=== PATIENT | male | born 1930 | race Caucasian/White ===

== ENCOUNTER 2017-02-12 09:01 | Emergency (ER) | payer MEDICARE, OTHER ==
--- NOTE | 2017-02-12 09:28 | EDM.PDOC ---
ED HPI GENERAL MEDICAL PROBLEM - General Chief Complaint: Respiratory Problem Stated Complaint: SOB Time Seen by Provider: 02/12/17 09:15 Source of Information: Reports: Patient, Family, RN History Limitations: Reports: No Limitations - History of Present Illness Onset: Today Onset Date: 02/07/17 Duration: Getting Worse Location: Reports: Chest Associated Symptoms: Reports: Cough, Fever/Chills, Shortness of Breath - Related Data Allergies Allergy/AdvReac Type Severity Reaction Status Date / Time No Known Allergies Allergy Verified 02/12/17 09:02 Home Meds: Home Meds Bicalutamide [Casodex] 50 mg PO DAILY 02/12/17 [History] Finasteride 5 mg PO DAILY 02/12/17 [History] HCTZ/Triamterene [Maxzide 25-37.5 MG] 1 each PO DAILY 02/12/17 [History] ED ROS GENERAL - Review of Systems Review Of Systems: See Below Constitutional: Reports: Fever HEENT: Reports: No Symptoms Respiratory: Reports: Shortness of Breath, Cough Cardiovascular: Reports: No Symptoms GI/Abdominal: Reports: No Symptoms : Reports: Frequency, Urgency Skin: Reports: No Symptoms Neurological: Reports: No Symptoms Psychiatric: Reports: No Symptoms Hematologic/Lymphatic: Reports: No Symptoms ED EXAM, GENERAL - Physical Exam Exam: See Below Exam Limited By: No Limitations General Appearance: Alert, WD/WN, No Apparent Distress Ears: Hearing Grossly Normal Nose: Normal Inspection Throat/Mouth: Normal Voice, No Airway Compromise Head: Atraumatic, Normocephalic Neck: Supple, Non-Tender Respiratory/Chest: No Respiratory Distress, Decreased Breath Sounds (right base) , Crackles (left lower lobe), Rhonchi (clear with cough) Cardiovascular: Regular Rate, Rhythm (Takes diuretic daily), No Edema GI/Abdominal: Normal Bowel Sounds, Soft, Non-Tender Extremities: Other (minimal peripheral edema) Neurological: Alert, Oriented, Normal Cognition Psychiatric: Normal Affect, Normal Mood Skin Exam: Warm, Dry Course - Vital Signs Last Recorded V/S: Last Vital Signs Temp 98.4 F 02/12/17 09:28 Pulse 82 02/12/17 09:28 Resp 20 02/12/17 09:28 BP 140/58 L 02/12/17 09:28 Pulse Ox 98 02/12/17 09:28 - Orders/Labs/Meds Orders: Active Orders 24 hr Category Date Time Status RT Aerosol Therapy [RC] ASDIRECTED Care 02/12/17 09:37 Active Chest 2V [CR] Stat Exams 02/12/17 09:23 Ordered Albuterol/Ipratropium [DuoNeb 3.0-0.5 MG/3 ML] Med 02/12/17 09:45 Active 3 ml NEB Q4H cefTRIAXone [Rocephin] 1 gm Med 02/12/17 09:45 Active Sodium Chloride 0.9% [Normal Saline] 50 ml IV Q24H Medication Orders Albuterol/Ipratropium (Duoneb 3.0-0.5 Mg/3 Ml) 3 ml NEB Q4H SUSY Last Admin: 02/12/17 09:15 Dose: 3 ml Ceftriaxone Sodium 1 gm/ (Sodium Chloride) 50 mls @ 200 mls/hr IV Q24H SUSY Last Admin: 02/12/17 10:33 Dose: 200 mls/hr Labs: Laboratory Tests 02/12/17 02/12/17 02/12/17 Range/Units 09:30 09:30 09:30 WBC 7.2 (4.0-11.0) K/uL RBC 3.82 L (4.50-6.50) M/uL Hgb 12.7 L (13.0-18.0) g/dL Hct 37.0 L (40.0-54.0) % MCV 97 H (76-96) fL MCH 33.2 H (27.0-32.0) pg MCHC 34.3 (31.0-35.0) g/dL RDW 12.3 (11.0-16.0) % Plt Count 151 (150-400) K/uL MPV 10.0 (6.0-10.0) fL Neut % (Auto) 65.9 (45.0-70.0) % Lymph % (Auto) 18.2 L (20.0-40.0) % [place] % (Auto) 15.0 H (3.0-10.0) % Eos % (Auto) 0.6 L (1.0-5.0) % Baso % (Auto) 0.3 (0.0-0.5) % Neut # (Auto) 4.72 (2.00-7.50) K/uL Lymph # (Auto) 1.30 L (1.50-4.00) K/uL [place] # (Auto) 1.07 H (0.20-0.80) K/uL Eos # (Auto) 0.04 (0.04-0.40) K/uL Baso # (Auto) 0.02 (0.02-0.10) K/uL Sodium 130 L (136-145) mmol/L Potassium 4.1 (3.5-5.1) mmol/L Chloride 93 L (98-107) mmol/L Carbon Dioxide 30.6 (21.0-32.0) mmol/L Anion Gap 10.5 (5.0-15.0) mmol/L BUN 9 (8-26) mg/dL Creatinine 0.72 (0.70-1.30) mg/dL Est Cr Clr Drug Dosing 66.46 mL/min Estimated GFR (MDRD) > 60 (>60) MLS/MIN BUN/Creatinine Ratio 12.5 (6-25) Glucose 108 H (74-100) mg/dL Calcium 8.4 L (8.5-10.1) mg/dL Total Bilirubin 0.3 (0.0-1.0) mg/dL AST 35 (15-37) U/L ALT 27 (12-78) U/L Alkaline Phosphatase 52 (46-116) U/L B-Natriuretic Peptide 509 H (0-450) pg/mL Total Protein 6.8 (6.4-8.2) g/dL Albumin 3.3 L (3.4-5.0) g/dL Globulin 3.5 (2.2-4.2) g/dL Albumin/Globulin Ratio 0.9 (0.8-2.0) Meds: Medications Generic Name Dose Route Start Last Admin Trade Name Freq PRN Reason Stop Dose Admin Albuterol/Ipratropium 3 ml 02/12/17 09:45 02/12/17 09:15 Duoneb 3.0-0.5 Mg/3 Ml NEB 3 ml Q4H SUSY Administration Ceftriaxone Sodium 1 gm/ 50 mls @ 200 mls/hr 02/12/17 09:45 02/12/17 10:33 Sodium Chloride IV 200 mls/hr Q24H SUSY Administration Discontinued Medications Generic Name Dose Route Start Last Admin Trade Name Freq PRN Reason Stop Dose Admin Albuterol/Ipratropium Confirm 02/12/17 10:51 Duoneb 3.0-0.5 Mg/3 Ml Administered 02/12/17 10:52 Dose 15 ml .ROUTE .STK-MED ONE Ceftriaxone Sodium Confirm 02/12/17 10:34 Rocephin Administered 02/12/17 10:35 Dose 1 gm .ROUTE .STK-MED ONE - Re-Assessments/Exams Free Text/Narrative Re-Assessment/Exam: 02/12/17 10:52 Reviewed lab results and chest x-ray results with pt and son in law. States hx of prostate concerns and BP concerns. Reviewed symptom care at home. Fluids and food as tolerated. Nebulizer every 4-6 hour scheduled. Rocephin 1 gm IM given X1. Family lives next to pt and can assist with nebulizers. PT does have c-pap at home and will continue to use. Recommend return if symptoms worsen. PCP f/u in 2-3 days, repeat chest x-ray. Departure - Departure Time of Disposition: 10:58 Disposition: Home, Self-Care 01 Condition: Good Clinical Impression: Influenza - Discharge Information Instructions: Influenza, Adult, [id number], How to Use a Nebulizer Referrals: PCP,None [Primary Care Provider] - Forms: ED Department Discharge Additional Instructions: Return to the ER or the clinic if you are starting to feel worse. You can use the nebulizer machine at home every 4 hours. Drink plenty of fluid at home. - My Orders Last 24 Hours: My Active Orders 02/12/17 09:23 Chest 2V [CR] Stat 02/12/17 09:37 RT Aerosol Therapy [RC] ASDIRECTED 02/12/17 09:45 Albuterol/Ipratropium [DuoNeb 3.0-0.5 MG/3 ML] 3 ml NEB Q4H cefTRIAXone [Rocephin] 1 gm Sodium Chloride 0.9% [Normal Saline] 50 ml IV Q24H - Assessment/Plan Last 24 Hours: My Active Orders 02/12/17 09:23 Chest 2V [CR] Stat 02/12/17 09:37 RT Aerosol Therapy [RC] ASDIRECTED 02/12/17 09:45 Albuterol/Ipratropium [DuoNeb 3.0-0.5 MG/3 ML] 3 ml NEB Q4H cefTRIAXone [Rocephin] 1 gm Sodium Chloride 0.9% [Normal Saline] 50 ml IV Q24H
[2017-02-12] MEDS ORDERED: Albuterol/Ipratropium 3.0-0.5 MG/3 ML Neb Soln NEB SCH (09:45)
[2017-02-12] MEDS ORDERED: cefTRIAXone 1 GM in Sodium Chloride 0.9% 50 ML IV SCH (09:45)
[2017-02-12] MEDS ORDERED: Albuterol/Ipratropium 3.0-0.5 MG/3 ML Neb Soln ONE ×2 (10:00→10:51)
[2017-02-12] MEDS ORDERED: cefTRIAXone 1 GM Vial ONE (10:34)
--- NOTE | 2017-02-12 20:31 | CR ---
DATE OF SERVICE: 02/12/2017 CLINICAL DATA: Shortness of breath. PA AND LATERAL CHEST: No priors. The patient has taken a poor inspiration. The heart size is within normal limits. The aorta is very ectatic. There are densities in both lung bases and there is eventration of the right hemidiaphragm consistent with basilar atelectasis and/or infiltrate. Pneumonia should be considered. No pneumothorax. There is minimal pleural thickening in both hemithoraces. There is a shunt tube traversing the right chest. The exam is otherwise negative. [id number] [facility]
== END 2017-02-12 11:18 | disposition home or self-care (01) ==
LOC: LB.ED 09:01
DX: J11.1 Influenza due to unidentified influenza virus with other respiratory manifestations (principal); Z79.899 Other long term (current) drug therapy
CPT/HCPCS: 36415; 71046; 80053; 83880; 85025; 87804; 99283; 99285; J0696; J7050; J7620

== ENCOUNTER 2017-02-14 11:33 | Observation (INO) | payer MEDICARE, OTHER ==
[2017-02-14] MEDS ORDERED: Furosemide 20 MG/2 ML VIAL IVPUSH ONE (12:09)
[2017-02-14] MEDS ORDERED: cloNIDine 0.1 MG Tab PO ONE (12:16)
[2017-02-14] MEDS ORDERED: Furosemide 40 MG/4 ML VIAL ONE (12:16)
[2017-02-14] MEDS ORDERED: cloNIDine 0.1 MG Tab ONE (12:20)
[2017-02-14] MEDS ORDERED: Sodium Chloride 0.9% 10 ML Syringe FLUSH PRN (13:55)
[2017-02-14] MEDS ORDERED: Metoprolol Tartrate 25 MG Tab ONE (17:12)
[2017-02-14] MEDS: Oseltamivir 75 MG Cap PO SCH ×2 (17:15→19:23)
[2017-02-14] MEDS: Metoprolol Tartrate 25 MG Tab PO SCH ×2 (17:15→19:24)
[2017-02-14] MEDS: Lisinopril 5 MG Tab PO SCH (17:15)
[2017-02-14] MEDS: Isosorbide Mononitrate 30 MG Tab.ER PO SCH (17:16)
[2017-02-14] MEDS: Furosemide 40 MG/4 ML VIAL IVPUSH SCH ×2 (17:22→20:52)
[2017-02-14] MEDS ORDERED: Warfarin 5 MG Tab PO SCH (18:00)
[2017-02-14] MEDS: Enoxaparin 100 MG/1 ML Syringe SUBCUT SCH ×2 (18:47→19:23)
--- NOTE | 2017-02-14 21:26 | PCM.HP ---
H&P History of Present Illness - General Date of Service: 02/14/17 Admit Problem/Dx: Admission Diagnosis/Problem Admission Diagnosis/Problem CHF, Congestive heart failure Source of Information: Patient, Family (Daughter) History Limitations: Reports: No Limitations - History of Present Illness Initial Comments - Free Text/Narative: Pt is a 86 year old male who is a patient of [facility] with PMH of HTN and prostate cancer and brain tumor post surgery. Pt is here in the emergency room with complaints of shortness of breath over the past 1 wk now. Patient claims he has been feeling shortness of breath, he claims he feels short of breath if he bends forward. he cannot sleep flat on his back at night, as he feels short of breath. Also he has been noticing swelling of his legs too. Feels tired and exhausted. Pt's SPO2 on room air was in high 70s when he came into the emergency room today. No chest pain or chest tightness. No nausea or vomiting. No palpitations. Pt claims he was seen in the emergency rom on 02/12/17 for the same reason and was diagnosed with Influenza A and he was reassured and discharged on Duonebs for his shortness of breath, but patient claims the duonebs have not helped him much and hence he is here for recheck. His Primary care provider is in [place]. Duration of Symptoms: Reports: Week(s): (1), Getting Worse Severity: Moderate Improves with: Reports: None Worsens with: Reports: None Associated Symptoms: Reports: Shortness of Breath, Weakness. Denies: Confusion , Chest Pain, Cough, Diaphoresis, Fever/Chills, Headaches, Loss of Appetite, Nausea/Vomiting, Rash, Seizure, Syncope - Related Data Allergies/Adverse Reactions: Allergies Allergy/AdvReac Type Severity Reaction Status Date / Time No Known Allergies Allergy Verified 02/12/17 09:02 Home Medications: Home Meds Albuterol/Ipratropium [DuoNeb 3.0-0.5 MG/3 ML] 3 ml .XX Q4HR 14 Days #84 neb 03/01 [Rx] Bicalutamide [Casodex] 50 mg PO DAILY 02/12/17 [History] Finasteride 5 mg PO DAILY 02/12/17 [History] HCTZ/Triamterene [Maxzide 25-37.5 MG] 1 each PO DAILY 02/12/17 [History] Past Medical History HEENT History: Reports: Other (See Below) Other HEENT History: 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 Cardiovascular History: Reports: Heart Failure, Hypertension Respiratory History: Reports: Sleep Apnea, Other (See Below) Other Respiratory History: Uses C-PAP at HS Genitourinary History: Reports: Prostate Disorder Oncologic (Cancer) History: Reports: Prostate - Infectious Disease History Infectious Disease History: Reports: Influenza - Past Surgical History HEENT Surgical History: Reports: Other (See Below) Other HEENT Surgeries/Procedures: see above Cardiovascular Surgical History: Reports: None Respiratory Surgical History: Reports: None Male Surgical History: Reports: None Musculoskeletal Surgical History: Reports: Hip Replacement Oncologic Surgical History: Reports: None Social & Family History - Family History Family Medical History: Noncontributory - Tobacco Use Smoking Status *Q: Former Smoker Years of Tobacco use: 15 Used Tobacco, but Quit: Yes Month Tobacco Last Used: 50 years ago Tobacco Use Comment: quiet smoking 50 years ago Second Hand Smoke Exposure: No - Caffeine Use Caffeine Use: Reports: Coffee Caffeine Use Comment: 1-2 cups a day - Recreational Drug Use Recreational Drug Use: No H&P Review of Systems - Review of Systems: Review Of Systems: See Below General: Reports: Weakness, Fatigue, Weight Gain. Denies: Fever, Chills, Diaphoresis, Decreased Appetite, Weight Loss HEENT: Denies: Rhinitis, Post Nasal Drip, Sinus Congestion, Sore Throat Pulmonary: Reports: Shortness of Breath. Denies: Wheezing, Pleuritic Chest Pain , Cough, Sputum Cardiovascular: Reports: Dyspnea on Exertion, Orthopnea, Edema, Lightheadedness , Blood Pressure Problem. Denies: Chest Pain, Palpitations, Syncope, Claudication Gastrointestinal: Denies: Abdominal Pain, Nausea, Vomiting Genitourinary: Denies: Dysuria, Frequency Musculoskeletal: Denies: Shoulder Pain, Joint Pain, Joint Swelling Skin: Denies: Cyanosis, Pruritis, Rash Psychiatric: Denies: Confusion, Depression Neurological: Reports: No Symptoms Hematologic/Lymphatic: Denies: Anemia, Easy Bleeding, Easy Bruising Exam - Exam Exam: See Below - Vital Signs Vital Signs: Last Vital Signs Temp 99.2 F 02/14/17 17:38 Pulse 65 01/03/18 17:38 Resp 18 02/14/17 17:38 BP 101/51 L 02/14/17 20:52 Pulse Ox 96 02/14/17 17:38 Weight: 97.704 kg - Exam General: Alert, Oriented, 4 HEENT: PERRLA, Hearing Intact, Mucosa Moist & [place], Nares Patent, Normal Nasal Septum, Posterior Pharynx Clear, Conjunctiva Clear, EOMI, EACs Clear, TMs Clear Neck: Supple, Trachea Midline, 2 Lungs: Clear to Auscultation, Normal Respiratory Effort Cardiovascular: Regular Rhythm, Tachycardia GI/Abdominal Exam: Normal Bowel Sounds, Soft, Non-Tender, No Organomegaly, No Distention, No Abnormal Bruit, No Mass, Pelvis Stable Extremities: Normal Inspection, Normal Range of Motion, Non-Tender, Normal Capillary Refill, Pedal Edema (pitting edema 4+ upto knee b/l) Skin: Warm, Intact Neurological: Cranial Nerves Intact, Reflexes Equal Bilateral Neuro Extensive - Mental Status: Alert, Oriented x3, Normal Mood/Affect - Patient Data Result Diagrams: 02/14/17 12:00 02/14/17 12:00 EKG INTERPRETATION EKG Date: 02/14/17 Rate (Beats/Min): 123 [place]: Normal P-Wave: Present QRS: Normal ST-T: Normal QT: Normal EKG Interpretation Comments: Sinus tachycardia *Q Meaningful Use (ADM) - VTE *Q VTE Criteria *Q: - Stroke *Q Stroke Criteria *Q: - AMI *Q AMI Criteria *Q: - Problem List (1) CHF (congestive heart failure), NYHA class III SNOMED Code(s): 337864731 ICD Code: I50.9 - HEART FAILURE, UNSPECIFIED Status: Acute Current Visit : Yes (2) Influenza SNOMED Code(s): 9639215 ICD Code: J11.1 - FLU DUE TO UNIDENTIFIED INFLUENZA VIRUS W OTH RESP MANIFEST Status: Acute Current Visit: No Problem List Initiated/Reviewed/Updated: Yes Orders Last 24hrs: Active Orders 24 hr Category Date Time Status Echo Comp wo Cont [US] Routine Exams 02/28/17 14:08 Ordered INR,PT,PROTHROMBIN TIME [COAG] Routine Lab 02/16/17 07:30 Ordered Bicalutamide [Casodex] Med 02/15/17 08:00 Active 50 mg PO DAILY Enoxaparin [Lovenox] Med 02/14/17 20:00 Active 90 mg SUBCUT Q12HR Finasteride [Proscar] Med 02/15/17 08:00 Active 5 mg PO DAILY Furosemide [Lasix] Med 02/14/17 14:15 Active 20 mg IVPUSH BID HCTZ/Triamterene [Maxzide 25-37.5 MG] Med 02/15/17 08:00 Active 1 each PO DAILY Isosorbide Mononitrate [Imdur] Med 02/14/17 14:15 Active 30 mg PO DAILY Lisinopril [Prinivil] Med 02/14/17 14:15 Active 5 mg PO DAILY Metoprolol Tartrate [Lopressor] Med 02/14/17 20:00 Active 25 mg PO Q12HR Oseltamivir [Tamiflu] Med 02/14/17 14:15 Active 75 mg PO BID Warfarin [Coumadin] Med 02/14/17 18:00 Active 5 mg PO DAILY@1800 Medication Orders Enoxaparin Sodium (Lovenox) 90 mg SUBCUT Q12HR [facility] Last Admin: 02/14/17 19:23 Dose: Admin: 02/14/17 18:47 Dose: 90 mg Finasteride (Proscar) 5 mg PO DAILY [facility] Furosemide (Lasix) 20 mg IVPUSH BID [facility] Last Admin: 02/14/17 20:52 Dose: 20 mg Admin: 02/14/17 17:22 Dose: Isosorbide Mononitrate (Imdur) 30 mg PO DAILY [facility] Last Admin: 02/14/17 17:16 Dose: 30 mg Lisinopril (Prinivil) 5 mg PO DAILY [facility] Last Admin: 02/14/17 17:15 Dose: 5 mg Metoprolol Tartrate (Lopressor) 25 mg PO Q12HR [facility] Last Admin: 02/14/17 19:24 Dose: Admin: 02/14/17 17:15 Dose: 25 mg Non-Formulary Medication (Bicalutamide [Casodex]) 50 mg PO DAILY [facility] Non-Formulary Medication (Hctz/Triamterene [Maxzide 25-37.5 Mg]) 1 each PO DAILY [facility] Oseltamivir Phosphate (Tamiflu) 75 mg PO BID [facility] Last Admin: 02/14/17 19:23 Dose: Admin: 02/14/17 17:15 Dose: 75 mg Sodium Chloride (Saline Flush) 10 ml FLUSH ASDIRECTED PRN PRN Reason: Keep Vein Open Warfarin Sodium (Coumadin) 5 mg PO DAILY@1800 [facility] Last Admin: 02/14/17 18:46 Dose: 5 mg Assessment/Plan Comment:: Asss: Congestive heart failure with underlying Afib, Uncontrolled hypertension. Plan:In the emergency room, pt was started on oxygen. On clinical exam he did have basal b/l crakles with pedal edema.His BP was elevated at 177.102mmhg. His lab work including Cbc, CMP, pt were normal. His troponin was negative. EKG showed sinus tachycardia. His BNP was elevated at 1044. It did appear like uncontrolled hypertension with CHF. He does give history on orthopnea and PND. He did receive 20mg of lasix IV, he started to diuresis significantly and also his shortness of breath improved. At this point, his CHFdiagnosis was confirmed, and as he is a [place], I did call [facility] to discuss patient condition and for inpatient care. I did speak to nurse case management director at [facility], Ms Luis. As there was no available inpatient bed, her recommendation [facility] and she would call us tomorrow when there is bed available and discuss transfer. Hence Patient was admitted to [facility]. He was placed on air sampling and monitoring and started on Treatment for CHF, with MOON inhibitor, Beta kumar, long acting nitro and diuretic. After few hrs of admission, when the heart rate started to come under control. The rhythm abnormality was picked up. He was in atrial fibrillation. Apparently his Afib was initially masked by his tacchycrdia and his CHF Hsi symptoms of SOB started 1 wk ago, so he probably is not a candidate for cardioversion. Hence, I did discuss the issue of anticoagulation with patient and his daughter. They did agree to go ahead with anticoagulation. Pt has been started on Lovenox 90mg S/c BID and also coumadin 5mg has been started today. Will repeat BMP in the morning and also get TSh in Am.
[2017-02-15] MEDS ORDERED: LORazepam 1 MG Tab ONE (06:03)
[2017-02-15] MEDS ORDERED: Non-Formulary Medication 1 Each (Bicalutamide [Casodex] 50 MG) PO SCH (08:00)
[2017-02-15] MEDS ORDERED: HCTZ PO SCH (08:00)
[2017-02-15] MEDS ORDERED: Finasteride 5 MG Tab PO SCH (08:00)
[2017-02-15] MEDS ORDERED: TRIAMTERENE PO SCH (08:00)
[2017-02-15] MEDS: Oseltamivir 75 MG Cap PO SCH (08:23)
[2017-02-15] MEDS: Isosorbide Mononitrate 30 MG Tab.ER PO SCH (08:23)
[2017-02-15] MEDS: Enoxaparin 100 MG/1 ML Syringe SUBCUT SCH (08:24)
[2017-02-15] MEDS: Metoprolol Tartrate 25 MG Tab PO SCH (08:24)
[2017-02-15] MEDS: Furosemide 40 MG/4 ML VIAL IVPUSH SCH (08:25)
[2017-02-15] MEDS: Lisinopril 5 MG Tab PO SCH (08:25)
--- NOTE | 2017-02-15 10:00 | CR ---
DATE OF SERVICE: 02/14/17 CLINICAL DATA: SOB AP PORTABLE CHEST: No priors. The heart is enlarged. The aorta is calcified and ectatic. There is increased density in both lung bases, left greater than right consistent with basilar atelectasis or infiltrate. Pneumonia should be considered. There is mild pleural thickening in both hemithoraces. No pneumothorax. No pleural effusion. There is a catheter traversing the right hemithorax. [id number] MTDD
--- NOTE | 2017-02-15 14:45 | PCM.DCSUM1 ---
Discharge Summary - Hospital Course Free Text/Narrative:: Pt was admitted with Diagnosis of CHF with elevated Blood pressure, he did receive 20mg IV lasix and clonidine 0.1mg orally in the emergency room and he started to diurise well. His SPO2 did improve from high 70s to upper 90s just with IV lasix. Also he was in sinus tachy to start with. he was placed on cardiac monitoring. his initial troponin was negative and also his CMP and CBC were normal. Pt was started on B-kumar, MOON inhibitor and long acting nitro. Also lasix 20mg IV. Once the heart rate started to decrease, the rhythm on the monitor appeared irregularly irregular, at which point patient was reexamined and he did appear to be in Atrial Fibrillation. Patient has been in CHF possible from Afib or vice-versa, not sure which came first. Also Patient was seen 2 days ago for SOB and had Flu test done and his Influenza A was positive. I did repeat it and he still had positive Influenza A. Hence I have empirically covered him with Tamiflu. I did discuss the A-fib with patient and his daughter, stroke prophylaxis and LUIS criteria were discussed. As his symptoms have been going on for 1 wk and progressively worsening, anticoagulation was discussed. Both patient and his daughter agreed to it. Patient was started on coumadin 5mg daily and lovenox 90mg S/c BID until he is therapeutic on coumadin. Today morning patient has been doing well. His BP is well controlled. His heart rate is in 80s controlled A-Fib. His lower extremity edema has significantly improved,and has diursed well.His intake was 500 with out put of 3075cc over night. Pt clincally feels better, no shortness of breath. tolerating diet well. As patient is a , [facility] was again contacted today. [facility] does not have open beds for patient to be transferred As patient is stable and asymptomatic plan was to monitor patient here and have ECHO done next Sunday , if he was not transferred to [facility] and followup. Pt's son who did visit him today afternoon, prefers patient be transferred to a facility with skip loader available to take care of his father. Wants him transferred today. As per the preference of patient's son and patient, I did contact [facility] and discuss patient's health issue with Dr. Domínguez, The hospitalist ventilation equipment tender. She does agree to accept patient. Pt will be transferred to [facility] by [facility] road ambulance.Pt agrees with transfer and he is hemodynamically stable at the time of transfer. Brief History: Kindly see the detialed history and physical - Discharge Data Discharge Date: 02/15/17 Discharge Disposition: Home, Self-Care 01 Condition: Fair - Discharge Diagnosis/Problem(s) (1) CHF (congestive heart failure), NYHA class III SNOMED Code(s): 527516150 ICD Code: I50.9 - HEART FAILURE, UNSPECIFIED Status: Acute Current Visit : Yes (2) Influenza SNOMED Code(s): 0472658 ICD Code: J11.1 - FLU DUE TO UNIDENTIFIED INFLUENZA VIRUS W OTH RESP MANIFEST Status: Acute Current Visit: No (3) New onset a-fib SNOMED Code(s): 63639321 ICD Code: I48.91 - UNSPECIFIED ATRIAL FIBRILLATION Status: Acute Current Visit: Yes - Patient Instructions Diet: Heart Healthy Diet Fluid Restriction: 1000 mL Activity: As Tolerated - Discharge Plan Home Medications: Home Meds Bicalutamide [Casodex] 50 mg PO DAILY 02/12/17 [History] Finasteride 5 mg PO DAILY 02/12/17 [History] HCTZ/Triamterene [Maxzide 25-37.5 MG] 1 each PO DAILY 02/12/17 [History] Enoxaparin [Lovenox] 90 mg SUBCUT Q12HR syringe 02/15/17 [Rx] Furosemide [Lasix] 20 mg IVPUSH BID vial 02/15/17 [Rx] Lisinopril [Prinivil] 5 mg PO DAILY tablet 02/15/17 [Rx] Metoprolol Tartrate [Lopressor] 25 mg PO Q12HR tablet 02/15/17 [Rx] Oseltamivir Phosphate [IJD: Tamiflu] 75 mg PO BID capsule 02/15/17 [Rx] Warfarin [Coumadin] 5 mg PO DAILY@1800 tablet 02/15/17 [Rx] Forms: ED Department Discharge Referrals: PCP,None [Primary Care Provider] - - Discharge Summary/Plan Comment DC Time >30 min.: Yes Discharge Summary/Plan Comment: Pt has been transferred to [facility] per Son's request. - General Info Functional Status: Reports: Tolerating Diet, Ambulating, Urinating - Review of Systems General: Denies: Fever, Weakness, Fatigue HEENT: Denies: Sinus Congestion, Sore Throat Pulmonary: Denies: Shortness of Breath, Cough, Sputum, Hemoptysis Cardiovascular: Denies: Chest Pain, Lightheadedness Gastrointestinal: Denies: Nausea, Vomiting Genitourinary: Denies: Dysuria, Frequency, Flank Pain Musculoskeletal: Denies: Joint Pain, Joint Swelling Skin: Denies: Cyanosis, Pruritis, Rash Neurological: Denies: Confusion, Dizziness, Headache, Syncope, Weakness - Patient Data Vitals - Most Recent: Last Vital Signs Temp 97.8 F 02/15/17 05:00 Pulse 73 02/15/17 09:00 Resp 12 02/15/17 09:00 BP 132/82 02/15/17 08:25 Pulse Ox 92 L 02/15/17 09:00 Weight - Most Recent: 97.704 kg I&O - Last 24 hours: Intake & Output 02/14/17 02/15/17 02/15/17 22:59 06:59 14:59 Intake Total 440 60 Output Total 1975 Balance 440 -1915 Lab Results - Last 24 hrs: Laboratory Results - last 24 hr 02/15/17 02/15/17 Range/Units 07:30 08:30 Sodium 131 L (136-145) mmol/L Potassium 3.8 (3.5-5.1) mmol/L Chloride 90 L (98-107) mmol/L Carbon Dioxide 35.5 H (21.0-32.0) mmol/L Anion Gap 9.3 (5.0-15.0) mmol/L BUN 14 D (8-26) mg/dL Creatinine 0.85 (0.70-1.30) mg/dL Est Cr Clr Drug Dosing 68.47 mL/min Estimated GFR (MDRD) > 60 (>60) MLS/MIN BUN/Creatinine Ratio 16.5 (6-25) Glucose 171 H D (74-100) mg/dL Calcium 8.3 L (8.5-10.1) mg/dL TSH, Ultra Sensitive 2.348 (0.358-3.740) uIU/mL Med Orders - Current: Current Medications Enoxaparin Sodium (Lovenox) 90 mg SUBCUT Q12HR S[facility] Last Admin: 02/15/17 08:24 Dose: 90 mg Finasteride (Proscar) 5 mg PO DAILY [facility] Last Admin: 02/15/17 08:25 Dose: 5 mg Furosemide (Lasix) 20 mg IVPUSH BID [facility] Last Admin: 02/15/17 08:25 Dose: 20 mg Isosorbide Mononitrate (Imdur) 30 mg PO DAILY [facility] Last Admin: 02/15/17 08:23 Dose: 30 mg Lisinopril (Prinivil) 5 mg PO DAILY [facility] Last Admin: 02/15/17 08:25 Dose: 5 mg Metoprolol Tartrate (Lopressor) 25 mg PO Q12HR [facility] Last Admin: 02/15/17 08:24 Dose: 25 mg Non-Formulary Medication (Bicalutamide [Casodex]) 50 mg PO DAILY [facility] Non-Formulary Medication (Hctz/Triamterene [Maxzide 25-37.5 Mg]) 1 each PO DAILY [facility] Oseltamivir Phosphate (Tamiflu) 75 mg PO BID [facility] Last Admin: 02/15/17 08:23 Dose: 75 mg Sodium Chloride (Saline Flush) 10 ml FLUSH ASDIRECTED PRN PRN Reason: Keep Vein Open Warfarin Sodium (Coumadin) 5 mg PO DAILY@1800 [facility] Last Admin: 02/14/17 18:46 Dose: 5 mg Discontinued Medications Clonidine HCl (Catapres) 0.1 mg PO ONETIME ONE Stop: 02/14/17 12:17 Last Admin: 02/14/17 12:18 Dose: 0.1 mg Clonidine HCl (Catapres) Confirm Administered Dose 0.1 mg .ROUTE .STK-MED ONE Stop: 02/14/17 12:21 Last Admin: 02/14/17 12:23 Dose: Not Given Furosemide (Lasix) 20 mg IVPUSH ONETIME ONE Stop: 02/14/17 12:10 Last Admin: 02/14/17 12:10 Dose: 20 mg Furosemide (Lasix) Confirm Administered Dose 40 mg .ROUTE .STK-MED ONE Stop: 02/14/17 12:17 Last Admin: 02/14/17 12:20 Dose: Not Given Lorazepam (Ativan) Confirm Administered Dose 1 mg .ROUTE .STK-MED ONE Stop: 02/15/17 06:04 Last Admin: 02/15/17 06:06 Dose: 0.5 mg Metoprolol Tartrate (Lopressor) Confirm Administered Dose 25 mg .ROUTE .STK-MED ONE Stop: 02/14/17 17:13 Last Admin: 02/14/17 18:17 Dose: Not Given - Exam Quality Assessment: Reports: Supplemental Oxygen, Urine Catheter (for strict I/ Os) General: Reports: Alert, Oriented HEENT: Reports: Pupils Equal, Pupils Reactive, EOMI, Mucous Membr. Moist/Gardner Neck: Reports: Supple Lungs: Reports: Clear to Auscultation, Normal Respiratory Effort Cardiovascular: Reports: No Murmurs, Irregular Rhythm GI/Abdominal Exam: Normal Bowel Sounds, Soft, Non-Tender, No Organomegaly, No Distention, No Abnormal Bruit, No Mass, Pelvis Stable Extremities: Normal Inspection, Normal Range of Motion, Non-Tender, No Pedal Edema (skin over the legs shrinking and shrivelled), Normal Capillary Refill Skin: Reports: Warm, Intact Neurological: Reports: No New Focal Deficit Psy/Mental Status: Reports: Alert, Normal Affect, Normal Mood *Q Meaningful Use (DIS) - VTE *Q VTE Criteria *Q: - Stroke *Q Stroke Criteria *Q: - AMI *Q AMI Criteria *Q:
== END 2017-02-15 17:00 | disposition home or self-care (01) ==
LOC: LB.ED 11:33 → LB.MS 13:55 → LB.ED 14:07
PROVIDERS: ADMIT Family Medicine; ATTEND Family Medicine
DX: I50.9 Heart failure, unspecified (principal); J11.1 Influenza due to unidentified influenza virus with other respiratory manifestations; I48.91 Unspecified atrial fibrillation; I10 Essential (primary) hypertension; G47.30 Sleep apnea, unspecified; Z79.01 Long term (current) use of anticoagulants; Z79.899 Other long term (current) drug therapy; Z87.891 Personal history of nicotine dependence
CPT/HCPCS: 36415; 51702; 71045; 80048; 80053; 83880; 84443; 84484; 85025; 85610; 87804; 93005; 96372; 96374; 96376; 99285-25; A9270-GY; G0378; J1650; J1940

== ENCOUNTER 2019-03-07 08:59 | Emergency (ER) | payer MEDICARE, OTHER, SELFPAY ==
[2019-03-07] MEDS ORDERED: cefTRIAXone 1 GM Vial ONE (09:44)
[2019-03-07] MEDS ORDERED: cefTRIAXone 1 GM Vial IM ONE (09:50)
--- NOTE | 2019-03-07 10:57 | EDM.PDOC ---
ED HPI GENERAL MEDICAL PROBLEM - General Stated Complaint: PAIN IN LEFT LEG Time Seen by Provider: 03/07/19 09:15 Source of Information: Reports: Patient History Limitations: Reports: No Limitations - History of Present Illness INITIAL COMMENTS - FREE TEXT/NARRATIVE: This is a 88yo M here for left lower leg redness, swelling and pain. He notes the symptoms started a few days ago. He denies any fever or chills. No shortness of breath or chest pain. He has chronic lower leg swelling but has never had redness of the area. Onset: Gradual Duration: Day(s): Location: Reports: Lower Extremity, Left Quality: Reports: Ache Severity: Mild Improves with: Reports: None Worsens with: Reports: None - Related Data Allergies Allergy/AdvReac Type Severity Reaction Status Date / Time No Known Allergies Allergy Verified 03/07/19 10:39 Home Meds: Home Meds Finasteride 5 mg PO DAILY 02/12/17 [History] Metoprolol Tartrate [Lopressor] 25 mg PO Q12HR tablet 02/15/17 [Rx] Alfuzosin HCl [Alfuzosin HCl ER] 10 mg PO DAILY 03/07/19 [History] Furosemide [Lasix] 10 mg PO DAILY 03/07/19 [History] Past Medical History HEENT History: Reports: Other (See Below) Other HEENT History: 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 Cardiovascular History: Reports: Heart Failure, Hypertension Respiratory History: Reports: Sleep Apnea, Other (See Below) Other Respiratory History: Uses C-PAP at HS and oxygen with exertion Genitourinary History: Reports: Prostate Disorder Oncologic (Cancer) History: Reports: Prostate Dermatologic History: Reports: Cellulitis, Urticaria, Other (See Below) Other Dermatologic History: Dry skin - Infectious Disease History Infectious Disease History: Reports: Influenza - Past Surgical History HEENT Surgical History: Reports: Other (See Below) Other HEENT Surgeries/Procedures: see above Cardiovascular Surgical History: Reports: None Respiratory Surgical History: Reports: None Male Surgical History: Reports: None Musculoskeletal Surgical History: Reports: Hip Replacement Oncologic Surgical History: Reports: None Social & Family History - Family History Family Medical History: Noncontributory - Caffeine Use Caffeine Use: Reports: Coffee Caffeine Use Comment: 1-2 cups a day ED ROS GENERAL - Review of Systems Review Of Systems: Comprehensive ROS is negative, except as noted in HPI. ED EXAM, GENERAL - Physical Exam Exam: See Below Exam Limited By: No Limitations General Appearance: Alert, WD/WN, No Apparent Distress Eye Exam: Bilateral Eye: EOMI, PERRL Nose: Normal Inspection Throat/Mouth: Normal Inspection Head: Atraumatic, Normocephalic Neck: Normal Inspection Respiratory/Chest: No Respiratory Distress, Lungs Clear, Normal Breath Sounds Cardiovascular: Normal Peripheral Pulses, Regular Rate, Rhythm Peripheral Pulses: 2+: Dorsalis Pedis (L), Dorsalis Pedis (R) GI/Abdominal: Normal Bowel Sounds Back Exam: Normal Inspection Extremities: Pedal Edema, Leg Pain, Redness Course - Vital Signs Last Recorded V/S: Last Vital Signs Temp 36.1 C 03/07/19 09:15 Pulse 72 03/07/19 09:15 Resp 16 03/07/19 09:15 BP 132/94 H 03/07/19 09:15 Pulse Ox 96 03/07/19 09:15 - Orders/Labs/Meds Meds: Medications Discontinued Medications Generic Name Dose Route Start Last Admin Trade Name Brayden PRN Reason Stop Dose Admin Ceftriaxone Sodium Confirm 03/07/19 09:44 03/07/19 10:13 Rocephin Administered 03/07/19 09:45 Not Given Dose 1 gm .ROUTE .STK-MED ONE Ceftriaxone Sodium 1 gm 03/07/19 09:50 03/07/19 09:50 Rocephin IM 03/07/19 09:51 1 gm ONETIME ONE Administration Departure - Departure Time of Disposition: 09:45 Disposition: Home, Self-Care 01 Condition: Good Clinical Impression: Cellulitis and abscess of left leg - Discharge Information Instructions: Amoxicillin; Clavulanic Acid tablets, Cellulitis, Adult Referrals: PCP,None [Primary Care Provider] - Care Plan Goals: Take augmentin as directed (two x day) until gone. Return to your primary care provider if symptoms do not get better or if they worsen. If pain worsens, swelling worsens or becomes redder. Sepsis Event Note - Evaluation Sepsis Screening Result: No Definite Risk - Focused Exam Vital Signs: Vital Signs Temp Pulse Resp BP Pulse Ox 03/07/19 09:15 36.1 C 72 16 132/94 H 96 Date Exam was Performed: 03/07/19 Time Exam was Performed: 10:53 - Problem List & Annotations (1) Cellulitis and abscess of left leg SNOMED Code(s): 723225485 Code(s): L03.116 - CELLULITIS OF LEFT LOWER LIMB; L02.416 - CUTANEOUS ABSCESS OF LEFT LOWER LIMB Status: Acute Priority: High - Problem List Review Problem List Initiated/Reviewed/Updated: Yes - Assessment/Plan Plan: Counseled on antibiotics and side effects. Discussed close f/u if symptoms persist or worsen. F/u in clinic and ER as needed. F/u with PCP as directed. Rtc or ER for any further concerns.
== END 2019-03-07 10:00 | disposition home or self-care (01) ==
LOC: LB.ED 08:59
DX: L02.416 Cutaneous abscess of left lower limb (principal); L03.116 Cellulitis of left lower limb; I11.0 Hypertensive heart disease with heart failure; I50.9 Heart failure, unspecified; Z79.899 Other long term (current) drug therapy
CPT/HCPCS: 96372; 99282; 99283; J0696

== ENCOUNTER 2019-03-08 19:15 | Emergency (ER) | payer OTHER, MEDICARE ==
--- NOTE | 2019-03-08 21:21 | ER ---
HISTORY OF PRESENT ILLNESS: An 88-year-old male who comes in with his son with complaints of cellulitis of the left lower leg that they feel is getting worse. He was just seen a day ago in the clinic and was put on Augmentin. The patient states he was up all afternoon in the kitchen making soup and doing other activities and the swelling in his lower leg and foot has gotten worse. It is not painful. The redness has really not changed much. The patient is not running a fever and does not really feel sick. OBJECTIVE: GENERAL APPEARANCE: The patient is awake and alert. No obvious distress. VITAL SIGNS: Reviewed. He is afebrile. Blood pressure just slightly elevated, O2 sats are in the low 90s on room air. SKIN: On physical exam, examining the left lower leg reveals moderate swelling. There is mild redness just below the knee down to and including the foot. It gets more dusky, down around the lower leg, ankle and foot area. The skin is extremely dry and flaky. It is not warm to touch at this time. DIAGNOSIS: Cellulitis recheck. TREATMENT PLAN: I advised the patient that he needs to be lying down semi-reclined with his affected foot elevated on a pillow or two, and he needs to do this as much of the time as he can, only getting up to use the bathroom, and to eat something. Otherwise, have his foot elevated the rest of the time. He can apply warm packs frequently for 10 to 15 minutes every couple of hours while awake. Nursing staff marked the proximal end of the rash with a skin pen. His son said he lives right around the corner. He can check on him 3 or 4 times a day and if his symptoms do not start to improve over the next day or two, followup is as needed. I advised the patient that if he came back in and was not improving, he would probably need to be hospitalized at that point in time, but the biggest thing we would offer him would be to elevate his leg and apply warm packs. The patient and his son are in agreement with the treatment plan and have no further questions. EZIO/MODL /[id number]
== END 2019-03-08 20:53 | disposition home or self-care (01) ==
LOC: LB.ED 19:15
DX: L03.116 Cellulitis of left lower limb (principal)
CPT/HCPCS: 99282